=== PATIENT | female | born 1995 | race American Indian/Alaskan Native ===

== ENCOUNTER 2017-02-27 21:08 | Emergency (ER) | payer SELFPAY ==
[2017-02-27 21:17] VITALS: BP 134/83
[2017-02-28 00:01] LABS: Bilirubin,Urine NEG (Negative); Blood,Urine NEG (Negative); Color,Urine Yellow (Yellow); Mucus,Urine 1+ /HPF; Nitrite,Urine NEG (Negative); Protein,Urine <15 mg/dL mg/dL (Negative); RBC,Urine < 1.0 /HPF (0.0-6.0); WBC,Urine < 1.0 /HPF (0.0-6.0)
== END 2017-02-28 08:35 | disposition left against medical advice (07) ==
LOC: ED 21:08
DX: R10.9 Unspecified abdominal pain (principal); Z53.21 Procedure and treatment not carried out due to patient leaving prior to being seen by health care provider
CPT/HCPCS: 81001

== ENCOUNTER 2017-05-15 19:45 | Emergency (ER) | payer SELFPAY ==
[2017-05-15 20:48] VITALS: BP 129/82
[2017-05-15 21:13] LABS: Basophils % (Auto) 0.6 % (0.0-1.8); Eosinophils % (Auto) 0.3 % (0.0-4.3); Hematocrit 37.3 % (30.3-42.9); Hemoglobin 11.8 gm/dl (10.1-14.3); Lymphocytes # (Auto) 0.9 K/mm3 (1.2-5.4); Lymphocytes % (Auto) 15.3 % (13.4-35.0); Mean Corpuscular HGB Conc 32 % (30-34); Mean Corpuscular Volume 81 fl (79-97); Monocytes # (Auto) 0.4 K/mm3 (0.0-0.8); Monocytes % (Auto) 6.6 % (0.0-7.3); Platelet Count 351 K/mm3 (140-440); Red Blood Count 4.62 M/mm3 (3.65-5.03); Red Cell Distribution Width 15.3 % (13.2-15.2)
[2017-05-15 21:16] LABS: Mean Corpuscular Hemoglobin 26 pg (28-32)
[2017-05-15 21:23] LABS: BUN/Creatinine Ratio 17; Blood Urea Nitrogen 12 mg/dL (7-17); Calcium 8.6 mg/dL (8.4-10.2); Hemolysis Index 19
[2017-05-16 01:51] LABS: Bilirubin,Urine NEG (Negative); Blood,Urine NEG (Negative); Color,Urine Yellow (Yellow); Mucus,Urine 3+ /HPF; Protein,Urine <15 mg/dL mg/dL (Negative); Urobilinogen,Urine < 2.0 mg/dL (<2.0)
--- NOTE | 2017-05-16 02:52 | Emergency Department Report ---
HPI - General Chief Complaint: Nausea/Vomiting/Diarrhea Time Seen by Provider: 05/16/17 02:41 - HPI HPI: Patient is a 21-year-old female with no prior medical history who presents not feeling well she was at work Sunday she had to leave work. 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 ED Past Medical Hx - Past Medical History Previous Medical History?: Yes Additional medical history: h/o irreg vag bldg 2014, blood transfusion 2014 - Surgical History Past Surgical History?: No - Social History Smoking Status: Never Smoker Substance Use Type: None - Medications Home Medications: Home Medications Medication Instructions Recorded Confirmed Last Taken Type Ciprofloxacin HCl [Ciprofloxacin 500 mg PO Q12HR #10 tab 05/16/17 Unknown Rx TAB] ED Review of Systems ROS: Stated complaint: NOT FEELING WELL,THROWING UP Other details as noted in HPI Constitutional: denies: chills, fever Eyes: denies: eye pain, eye discharge, vision change ENT: denies: ear pain, throat pain Respiratory: denies: cough, shortness of breath, wheezing Cardiovascular: denies: chest pain, palpitations Endocrine: no symptoms reported Gastrointestinal: denies: abdominal pain, nausea, diarrhea Genitourinary: denies: urgency, dysuria, discharge Musculoskeletal: denies: back pain, joint swelling, arthralgia Skin: denies: rash, lesions Neurological: denies: headache, weakness, paresthesias Psychiatric: denies: anxiety, depression Hematological/Lymphatic: denies: easy bleeding, easy bruising Physical Exam - Physical Exam Vital Signs: Vital Signs 05/15/17 20:00 Temperature 99 F Pulse Rate 113 H Respiratory 18 Rate Blood Pressure 129/82 O2 Sat by Pulse 99 Oximetry Physical Exam: GENERAL: Alert and oriented x3, no apparent distress, Normal Gait, atraumatic. HEAD: Head is normocephalic and a-traumatic. LUNGS: Symetrical with respiration, No wheezing, no rales or crackles, CTAB. HEART: S1, S2 present, regular rate and rhythm without murmur, no rubs, no gallops. Non tender to palpation ABDOMEN: No organomegaly was noted,Positive bowel sounds, soft, and non- distended. . Nontender to palpation on all Quadrants, NO CVA tenderness. BACK: Full range of motion, no spinal tenderness, nontender to palpation. NEUROLOGIC: The patient is cooperative with no focal neurologic deficits. SKIN: Warm and dry, No lesions, No ulceration or induration present. ED Course Vital Signs 05/15/17 20:00 Temperature 99 F Pulse Rate 113 H Respiratory 18 Rate Blood Pressure 129/82 O2 Sat by Pulse 99 Oximetry ED Medical Decision Making - Lab Data Result diagrams: 05/15/17 20:58 05/15/17 20:58 Temp Pulse Resp BP Pulse Ox 99 F 113 H 18 129/82 99 05/15/17 20:00 05/15/17 20:00 05/15/17 20:00 05/15/17 20:00 05/15/17 20:00 Laboratory Last Values WBC 5.6 K/mm3 (4.5-11.0) 05/15/17 20:58 RBC 4.62 M/mm3 (3.65-5.03) 05/15/17 20:58 Hgb 11.8 gm/dl (10.1-14.3) 05/15/17 20:58 Hct 37.3 % (30.3-42.9) 05/15/17 20:58 MCV 81 fl (79-97) 05/15/17 20:58 MCH 26 pg (28-32) L 05/15/17 20:58 MCHC 32 % (30-34) 05/15/17 20:58 RDW 15.3 % (13.2-15.2) H 05/15/17 20:58 Plt Count 351 K/mm3 (140-440) 05/15/17 20:58 Lymph % (Auto) 15.3 % (13.4-35.0) 05/15/17 20:58 [place] % (Auto) 6.6 % (0.0-7.3) 05/15/17 20:58 Eos % (Auto) 0.3 % (0.0-4.3) 05/15/17 20:58 Baso % (Auto) 0.6 % (0.0-1.8) 05/15/17 20:58 Lymph # 0.9 K/mm3 (1.2-5.4) L 05/15/17 20:58 [place] # 0.4 K/mm3 (0.0-0.8) 05/15/17 20:58 Eos # 0.0 K/mm3 (0.0-0.4) 05/15/17 20:58 Baso # 0.0 K/mm3 (0.0-0.1) 05/15/17 20:58 Seg Neutrophils % 77.2 % (40.0-70.0) H 05/15/17 20:58 Seg Neutrophils # 4.3 K/mm3 (1.8-7.7) 05/15/17 20:58 Sodium 134 mmol/L (137-145) L 05/15/17 20:58 Potassium 3.6 mmol/L (3.6-5.0) 05/15/17 20:58 Chloride 100.5 mmol/L (98-107) 05/15/17 20:58 Carbon Dioxide 18 mmol/L (22-30) L 05/15/17 20:58 Anion Gap 19 mmol/L 05/15/17 20:58 BUN 12 mg/dL (7-17) 05/15/17 20:58 Creatinine 0.7 mg/dL (0.7-1.2) 05/15/17 20:58 Estimated GFR > 60 ml/min 05/15/17 20:58 BUN/Creatinine Ratio 17 % 05/15/17 20:58 Glucose 86 mg/dL (65-100) 05/15/17 20:58 Calcium 8.6 mg/dL (8.4-10.2) 05/15/17 20:58 HCG, Qual Negative (Negative) 05/15/17 20:58 Urine Color Yellow (Yellow) 05/15/17 Unknown Urine Turbidity Clear (Clear) 05/15/17 Unknown Urine pH 5.0 (5.0-7.0) 05/15/17 Unknown Ur Specific [place] 1.032 (1.003-1.030) H 05/15/17 Unknown Urine Protein <15 mg/dl mg/dL (Negative) 05/15/17 Unknown Urine Glucose (UA) Neg mg/dL (Negative) 05/15/17 Unknown Urine Ketones 20 mg/dL (Negative) 05/15/17 Unknown Urine Blood Neg (Negative) 05/15/17 Unknown Urine Nitrite Neg (Negative) 05/15/17 Unknown Urine Bilirubin Neg (Negative) 05/15/17 Unknown Urine Urobilinogen < 2.0 mg/dL (<2.0) 05/15/17 Unknown Ur Leukocyte Esterase Sm (Negative) 05/15/17 Unknown Urine WBC (Auto) 3.0 /HPF (0.0-6.0) 05/15/17 Unknown Urine RBC (Auto) 1.0 /HPF (0.0-6.0) 05/15/17 Unknown U Epithel Cells (Auto) 11.0 /HPF (0-13.0) 05/15/17 Unknown Urine Mucus 3+ /HPF 05/15/17 Unknown - Medical Decision Making 21-year-old female presents with mild cystitis CBC, BMP, urinalysis, test obtained Sodium and chloride mildly reproducible within normal limits Discussed all findings with the patient discussed the patient some antibiotics. I discussed the patient's wishes she is drinking enough fluids. Discussed the patient follow-up with the primary care physician. Vital signs are normal patient is in no acute distress or respiratory distress Critical care attestation.: If time is entered above; I have spent that time in minutes in the direct care of this critically ill patient, excluding procedure time. ED Disposition Clinical Impression: Cystitis Disposition: - TO HOME OR SELFCARE Is pt being admited?: No Does the pt Need Aspirin: No Condition: Stable Instructions: Urinary Tract Infection in Women (ED), Dehydration (ED) Additional Instructions: Make sure to follow up with the primary care physician as discussed. Take all your medications as you've been prescribed. Make sure to drink plenty of fluids If you have any worsening symptoms or develop new symptoms please return to ED immediately. Prescriptions: Ciprofloxacin HCl [Ciprofloxacin TAB] 500 mg PO Q12HR #10 tab Referrals: FRITZ ANDREA MD [Primary Care Provider] - 3-5 Days Forms: Work/School Release Form(ED) Time of Disposition: 02:52
== END 2017-05-16 03:05 | disposition home or self-care (01) ==
LOC: ED 19:45
DX: N30.90 Cystitis, unspecified without hematuria (principal)
CPT/HCPCS: 36415; 80048; 81001; 84703; 85025; 87086; 93005; 93010; 99283

== ENCOUNTER 2018-07-05 23:15 | Emergency (ER) | payer OTHER ==
[2018-07-05 23:44] LABS: Basophils % (Auto) 0.8 % (0.0-1.8); Eosinophils # (Auto) 0.1 K/mm3 (0.0-0.4); Eosinophils % (Auto) 2.2 % (0.0-4.3); Hematocrit 30.8 % (30.3-42.9); Hemoglobin 10.6 gm/dl (10.1-14.3); Lymphocytes # (Auto) 2.3 K/mm3 (1.2-5.4); Lymphocytes % (Auto) 39.5 % (13.4-35.0); Mean Corpuscular HGB Conc 35 % (30-34); Mean Corpuscular Volume 78 fl (79-97); Monocytes # (Auto) 0.4 K/mm3 (0.0-0.8); Monocytes % (Auto) 7.2 % (0.0-7.3); Platelet Count 396 K/mm3 (140-440); Red Blood Count 3.94 M/mm3 (3.65-5.03); Red Cell Distribution Width 15.9 % (13.2-15.2)
--- NOTE | 2018-07-06 00:23 | Emergency Department Report ---
ED Female HPI - General Chief complaint: Abdominal Pain Stated complaint: BLEEDING (CYCLE) X 1MONTH AND THROWING UP Time Seen by Provider: 07/06/18 00:11 Source: patient Mode of arrival: Ambulatory Limitations: No Limitations - History of Present Illness Initial comments: Patient is a 22-year-old female that presents emergency room for vaginal bleedi ng 1 month. Patient states now she is having lower abdominal pain. Patient states the pain is a worsening. Patient states the pain is a 6 out of 10. Patient states she has very heavy periods. Patient states she has been bleeding for at least one month. Patient states she has not seen her DIRECTOR FUNERAL. Patient states she is taking Advil for her pain. Patient states the pain is better with Advil and rest. Patient states the pain is worse with palpation and movement. MD Complaint: vaginal bleeding -: Sudden Location: suprapubic Radiation: non-radiating Severity: moderate Severity scale (0 -10): 6 Quality: cramping Consistency: intermittent Improves with: other Worsens with: movement, other Are you Now?: No Associated Symptoms: vaginal bleeding, abdominal pain, nausea/vomiting. denies: vaginal discharge, fever/chills, headaches, loss of appetite, dysuria, hematuria, rash, seizure, shortness of breath, syncope, weakness - Related Data Previous Rx's Medication Instructions Recorded Last Taken Type Ciprofloxacin HCl [Ciprofloxacin 500 mg PO Q12HR 7 Days #14 tab 07/06/18 Unknown Rx TAB] Allergies Allergy/AdvReac Type Severity Reaction Status Date / Time No Known Allergies Allergy Verified 01/15/18 05:30 ED Review of Systems ROS: Stated complaint: BLEEDING (CYCLE) X 1MONTH AND THROWING UP Other details as noted in HPI Constitutional: denies: chills, fever Eyes: denies: eye pain, eye discharge, vision change ENT: denies: ear pain, throat pain Respiratory: denies: cough, shortness of breath, wheezing Cardiovascular: denies: chest pain, palpitations Endocrine: no symptoms reported Gastrointestinal: abdominal pain, nausea, vomiting. denies: diarrhea Genitourinary: abnormal menses. denies: urgency, dysuria, discharge Musculoskeletal: denies: back pain, joint swelling, arthralgia Skin: denies: rash, lesions Neurological: denies: headache, weakness, paresthesias Psychiatric: denies: anxiety, depression Hematological/Lymphatic: denies: easy bleeding, easy bruising ED Past Medical Hx - Past Medical History Previous Medical History?: Yes Additional medical history: h/o irreg vag bldg 2014, blood transfusion 2014 - Surgical History Past Surgical History?: No - Family History Family history: no significant - Social History Smoking Status: Former Smoker Substance Use Type: None - Medications Home Medications: Home Medications Medication Instructions Recorded Confirmed Last Taken Type Ciprofloxacin HCl [Ciprofloxacin 500 mg PO Q12HR 7 Days #14 tab 07/06/18 Unknown Rx TAB] ED Physical Exam - General Limitations: No Limitations General appearance: alert, in no apparent distress - Head Head exam: Present: atraumatic, normocephalic - Eye Eye exam: Present: normal appearance - ENT ENT exam: Present: mucous membranes moist - Neck Neck exam: Present: normal inspection - Respiratory Respiratory exam: Present: normal lung sounds bilaterally. Absent: respiratory distress, wheezes, rales - Cardiovascular Cardiovascular Exam: Present: regular rate, normal rhythm. Absent: systolic murmur, diastolic murmur, rubs, gallop - GI/Abdominal GI/Abdominal exam: Present: soft, tenderness (suprapubic tenderness), normal bowel sounds - Extremities Exam Extremities exam: Present: normal inspection - Back Exam Back exam: Present: normal inspection - Neurological Exam Neurological exam: Present: alert, oriented X3 - Psychiatric Psychiatric exam: Present: normal affect, normal mood - Skin Skin exam: Present: warm, dry, intact, normal color. Absent: rash ED Course Vital Signs 07/05/18 07/06/18 23:23 00:35 Temperature 97.9 F Pulse Rate 87 74 Respiratory 18 16 Rate Blood Pressure 123/68 Blood Pressure 126/84 [Left] O2 Sat by Pulse 99 100 Oximetry - Reevaluation(s) Reevaluation #1: She resting comfortably. Patient had AN ULTRASOUND and RESULTS ARE PENDING. 07/06/18 01:26 Reevaluation #2: Discussed all results with patient. Patient stable for discharge. Patient was discharged home.. Patient agrees to plan of care. She given discharge instructions. Patient was understanding of discharge instructions. 07/06/18 02:09 ED Medical Decision Making - Lab Data Result diagrams: 07/05/18 23:25 - Radiology Data Radiology results: report reviewed PROCEDURE: US TRANSVAGINAL TECHNIQUE: Real-time transvaginal sonography in multiple planes of the pelvis was performed with image documentation. HISTORY: vaginal bleed. lower abd pain COMPARISONS: None . FINDINGS: UTERUS Size: 6.6 x 3.4 cm. Endometrial thickness: 12 mm. Orientation: anteverted. Cervix: Normal. Fibroids/masses: None. RIGHT Ovary: 2.2 x 1.7 x 2 cm. Appearance: Normal. LEFT Ovary: 2.9 x 1.7 x 1.7 cm. Appearance: Normal. Pelvic fluid: Minimal fluid noted. Other: None. IMPRESSION: The uterus and both ovaries have a normal appearance. Minimal fluid in the lower pelvis is noted.. - Medical Decision Making Patient is a 22-year-old female presents emergency room with complaints of bl eeding from her vagina for one month. Patient states she came in because of her abdominal cramps. Patient's labs unremarkable. Patient is not anemic. Patient found to have a UTI. Patient will be treated with antibiotics. Patient ultrasound negative. Patient sent to see a DIRECTOR FUNERAL. - Differential Diagnosis vaginal bleeding. Abdominal cramps. Critical care attestation.: If time is entered above; I have spent that time in minutes in the direct care of this critically ill patient, excluding procedure time. ED Disposition Clinical Impression: Vaginal bleeding, Dysfunctional uterine bleeding UTI (urinary tract infection) Qualifiers: Urinary tract infection type: acute cystitis Hematuria presence: with hematuria Qualified Code(s): N30.01 - Acute cystitis with hematuria Abdominal pain Qualifiers: Abdominal location: lower abdomen, unspecified Qualified Code(s): R10.30 - Lower abdominal pain, unspecified Disposition: TO HOME OR SELFCARE Is pt being admited?: No Does the pt Need Aspirin: No Condition: Stable Instructions: Abdominal Pain (ED), Menstruation (ED), Dysfunctional Uterine Bleeding (ED), Urinary Tract Infection in Women (ED) Additional Instructions: Patient to follow-up with primary care in 2-3 days. He should follow-up with DIRECTOR FUNERAL in 2-3 days. Should she start taking a vitamin daily. Patient to take Tylenol or ibuprofen when necessary for pain. Patient to return to ER if condition worsens. Patient to take meds as directed. Patient to increase water. Patient to rest. Prescriptions: Ciprofloxacin HCl [Ciprofloxacin TAB] 500 mg PO Q12HR 7 Days #14 tab Referrals: PRIMARY CARE, [Primary Care Provider] - 2-3 Days LAURA SERVIN MD [Staff Physician] - 2-3 Days Time of Disposition: 02:13
[2018-07-06 00:40] LABS: Bilirubin,Urine NEG (Negative); Blood,Urine LG (Negative); Color,Urine Yellow (Yellow); Mucus,Urine 1+ /HPF; Protein,Urine <15 mg/dL mg/dL (Negative)
[2018-07-06 00:51] LABS: RBC,Urine > 182.0 /HPF (0.0-6.0)
--- NOTE | 2018-07-06 01:59 | Ultrasound Report ---
PROCEDURE: US TRANSVAGINAL TECHNIQUE: Real-time transvaginal sonography in multiple planes of the pelvis was performed with uma ge documentation. HISTORY: vaginal bleed. lower abd pain COMPARISONS: None . FINDINGS: UTERUS Size: 6.6 x 3.4 cm. Endometrial thickness: 12 mm. Orientation: anteverted. Cervix: Normal. Fibroids/masses: None. RIGHT Ovary: 2.2 x 1.7 x 2 cm. Appearance: Normal. LEFT Ovary: 2.9 x 1.7 x 1.7 cm. Appearance: Normal. Pelvic fluid: Minimal fluid noted. Other: None. IMPRESSION: The uterus and both ovaries have a normal appearance. Minimal fluid in the lower pelvis is noted.. This document is electronically signed by Genna Diaz DO., Jul 06 2018 01:56:36 AM ET
[2018-07-06 02:40] VITALS: BP 108/70
== END 2018-07-06 02:40 | disposition home or self-care (01) ==
LOC: ED 23:15
DX: N30.01 Acute cystitis with hematuria (principal); N93.8 Other specified abnormal uterine and vaginal bleeding; Z87.891 Personal history of nicotine dependence
CPT/HCPCS: 36415; 76830; 81001; 84702; 84703; 85025; 86900; 86901

== ENCOUNTER 2019-04-28 08:23 | Emergency (ER) | payer SELFPAY ==
[2019-04-28] MEDS ORDERED: ONDANSETRON 4 MG/2 ML INJ IV ONE (09:46)
[2019-04-28] MEDS ORDERED: SODIUM CHLORIDE 0.9% 1000 ML 1,000 ML IV ONE (09:46)
--- NOTE | 2019-04-28 09:46 | Emergency Department Report ---
Vomiting/Diarrhea - HPI Chief Complaint: Nausea/Vomiting/Diarrhea Stated Complaint: VOMITTING,CHEST PAIN,WEAKNESS Time Seen by Provider: 04/28/19 08:42 Duration: Today Severity: severe Nausea/Vomiting Severity: Severe Diarrhea Severity: None Symptoms: No Watery Diarrhea, No Bloody diarrhea, No Fever, No Able to Tolerate Fluids, No Recent Unusual Foods, No Recent Untreated Water, No Recent use of Antibiotics, No Family w/ Similar Symptoms, No Contacts w/ Similar Symptoms, No Rash, No Hematuria, No Recent URI Symptoms Other History: This is a 23-year-old -[place] female who presents to the emergency room with vomiting and chest pain. Patient states symptoms started after eating breakfast at work this morning. Her last menstrual period was April 07, 2019, 0. Patient states chest pain is nonradiating and only during vomiting episodes. States she is unable to keep anything down. Denies fever, chills, weakness, headache, recent travel, or unusual foods. ED Review of Systems ROS: Stated complaint: VOMITTING,CHEST PAIN,WEAKNESS Other details as noted in HPI Constitutional: denies: chills, fever ENT: denies: ear pain, throat pain Respiratory: denies: cough, shortness of breath, wheezing Cardiovascular: chest pain. denies: palpitations Gastrointestinal: nausea, vomiting. denies: abdominal pain, diarrhea Musculoskeletal: denies: back pain, joint swelling, arthralgia Skin: denies: rash, lesions Neurological: denies: headache, weakness, paresthesias Psychiatric: denies: anxiety, depression ED Past Medical Hx - Past Medical History Previous Medical History?: No Additional medical history: h/o irreg vag bldg 2014, blood transfusion 2014 - Surgical History Past Surgical History?: No - Social History Smoking Status: Never Smoker Substance Use Type: None - Medications Home Medications: Home Medications Medication Instructions Recorded Confirmed Last Taken Type Ciprofloxacin HCl [Ciprofloxacin 500 mg PO Q12HR 7 Days #14 tab 07/06/18 Unknown Rx TAB] Ondansetron [Zofran Odt] 4 mg PO Q8HR PRN #20 tab.rapdis 04/28/19 Unknown Rx Vomiting Diarrhea Exam - Exam General: Vital signs noted. No distress. Alert and acting appropriately. HEENT: Yes Pharyngeal Erythema (Erythematous posterior pharynx, uvula midline), Yes Moist Mucous Membranes, No Pharyngeal Exudates, No Rhinorrhea, No Conjuctival Injection, No Frontal Tenderness, No Maxillary Tenderness Neck: No Adenopathy, No Rigidity Lungs: Yes Clear Lung Sounds, Yes Good Air Exchange, No Wheezes, No Stridor, No Cough, No Nasal Flaring, No Retractions, No Use of Accessory Muscles Heart exam: Regular: Yes, Murmur: No, Tachycardia: No Abdomen: Tenderness: No, Peritoneal Signs: No, Distention: No, Hyperactive Bowel sounds: No Skin exam: Rash: No, Edema: No, Normal turgor: Yes Neurologic: Alert and oriented, no deficits. Musculoskeletal: Unremarkable. ED Course Vital Signs 04/28/19 08:30 Temperature 97.9 F Pulse Rate 85 Respiratory 18 Rate Blood Pressure 132/74 O2 Sat by Pulse 100 Oximetry ED Medical Decision Making - Lab Data Result diagrams: 04/28/19 09:59 04/28/19 09:59 Lab Results 04/28/19 04/28/19 04/28/19 Range/Units 09:54 09:59 09:59 WBC 5.6 (4.5-11.0) K/mm3 RBC 4.48 (3.65-5.03) M/mm3 Hgb 9.6 L (10.1-14.3) gm/dl Hct 31.1 (30.3-42.9) % MCV 69 L (79-97) fl MCH 21 L (28-32) pg MCHC 31 (30-34) % RDW 18.3 H (13.2-15.2) % Plt Count 385 (140-440) K/mm3 Lymph % (Auto) 35.1 H (13.4-35.0) % [place] % (Auto) 7.1 (0.0-7.3) % Eos % (Auto) 1.0 (0.0-4.3) % Baso % (Auto) 0.9 (0.0-1.8) % Lymph # 2.0 (1.2-5.4) K/mm3 [place] # 0.4 (0.0-0.8) K/mm3 Eos # 0.1 (0.0-0.4) K/mm3 Baso # 0.0 (0.0-0.1) K/mm3 Seg Neutrophils % 55.9 (40.0-70.0) % Seg Neutrophils # 3.1 (1.8-7.7) K/mm3 Sodium 137 (137-145) mmol/L Potassium 4.5 (3.6-5.0) mmol/L Chloride 100.9 (98-107) mmol/L Carbon Dioxide 23 (22-30) mmol/L Anion Gap 18 mmol/L BUN 11 (7-17) mg/dL Creatinine 0.8 (0.7-1.2) mg/dL Estimated GFR > 60 ml/min BUN/Creatinine Ratio 14 % Glucose 88 (65-100) mg/dL Calcium 9.9 (8.4-10.2) mg/dL Total Bilirubin 0.20 (0.1-1.2) mg/dL AST 20 (5-40) units/L ALT 10 (7-56) units/L Alkaline Phosphatase 70 (35-129) units/L Total Protein 8.3 H (6.3-8.2) g/dL Albumin 4.6 (3.9-5) g/dL Albumin/Globulin Ratio 1.2 % Urine Color Straw (Yellow) Urine Turbidity Clear (Clear) Urine pH 7.0 (5.0-7.0) Ur Specific [place] 1.011 (1.003-1.030) Urine Protein <15 mg/dl (Negative) mg/dL Urine Glucose (UA) Neg (Negative) mg/dL Urine Ketones Neg (Negative) mg/dL Urine Blood Mod (Negative) Urine Nitrite Neg (Negative) Urine Bilirubin Neg (Negative) Urine Urobilinogen < 2.0 (<2.0) mg/dL Ur Leukocyte Esterase Lg (Negative) Urine WBC (Auto) 1.0 (0.0-6.0) /HPF Urine RBC (Auto) 4.0 (0.0-6.0) /HPF U Epithel Cells (Auto) 2.0 (0-13.0) /HPF Urine Bacteria (Auto) 1+ (Negative) /HPF Urine Mucus Few /HPF Urine HCG, Qual Negative (Negative) - Medical Decision Making This is a 23 y.o. female that presents with nausea and vomiting for 1 day. No significant past medical history. Patient is stable and was examined by me. Vitals stable. Obtained CMP, CBC, & UA. Mild anemia. All other labs are unremarkable. Abdomen nontender on exam. There is low suspicion of acute abdomen, AAA, GERD, and small bowel obstruction. Imaging deferred at this time. Given antiemetics and normal saline IV once in ER. Plan to start Zofran for gastroenteritis. Discussed plan with patient and agreed to plan. No further questions noted by the patient. Discharged home in stable condition. Patient given strict return instructions. Follow up with PCP in 2-3 days. Critical care attestation.: If time is entered above; I have spent that time in minutes in the direct care of this critically ill patient, excluding procedure time. ED Disposition Clinical Impression: Gastroenteritis, Nausea and vomiting in adult Disposition: DC-01 TO HOME OR SELFCARE Is pt being admited?: No Condition: Stable Instructions: Gastroenteritis (ED), Acute Nausea and Vomiting (ED) Additional Instructions: Frequent hand washing is important to reduce spread. Prompt disinfection of contaminated surfaces with household chlorine bleach- based mast maker and washing of soiled clothing and bedding should be advised. If food or water is thought to be contaminated, it should be avoided. Increase fluid intake. Drinks high in sugars such as carbonated soft drinks, fruit juice, and highly sugared liquids should be avoided. Prescriptions: Ondansetron [Zofran Odt] 4 mg PO Q8HR PRN #20 tab.rapdis PRN Reason: Nausea And Vomiting Referrals: [facility] [Outside] - 3-5 Days [facility] [Outside] - 3-5 Days [facility] [Outside] - 3-5 Days Forms: Work/School Release Form(ED) Time of Disposition: 12:02
[2019-04-28 10:47] LABS: Basophils % (Auto) 0.9 % (0.0-1.8); Eosinophils # (Auto) 0.1 K/mm3 (0.0-0.4); Hematocrit 31.1 % (30.3-42.9); Hemoglobin 9.6 gm/dl (10.1-14.3); Lymphocytes % (Auto) 35.1 % (13.4-35.0); Mean Corpuscular HGB Conc 31 % (30-34); Monocytes # (Auto) 0.4 K/mm3 (0.0-0.8); Monocytes % (Auto) 7.1 % (0.0-7.3); Platelet Count 385 K/mm3 (140-440); Red Blood Count 4.48 M/mm3 (3.65-5.03); Red Cell Distribution Width 18.3 % (13.2-15.2)
[2019-04-28 10:50] LABS: Mean Corpuscular Volume 69 fl (79-97)
[2019-04-28 11:11] LABS: Bacteria,Urine 1+ /HPF (Negative); Bilirubin,Urine NEG (Negative); Blood,Urine MOD (Negative); Color,Urine Straw (Yellow); Mucus,Urine FEW /HPF; Protein,Urine <15 mg/dL mg/dL (Negative); Urobilinogen,Urine < 2.0 mg/dL (<2.0)
[2019-04-28 11:12] LABS: HCG Qualitative,Urine Negative (Negative)
[2019-04-28 11:40] LABS: Alanine Aminotransferase 10 units/L (7-56); Albumin 4.6 g/dL (3.9-5); BUN/Creatinine Ratio 14; Blood Urea Nitrogen 11 mg/dL (7-17); Calcium 9.9 mg/dL (8.4-10.2); Hemolysis Index 4
[2019-04-28 12:13] VITALS: BP 126/71
== END 2019-04-28 12:12 | disposition home or self-care (01) ==
LOC: ED 08:23
DX: K52.9 Noninfective gastroenteritis and colitis, unspecified (principal); R11.2 Nausea with vomiting, unspecified; Z79.2 Long term (current) use of antibiotics; Z79.899 Other long term (current) drug therapy
CPT/HCPCS: 36415; 80053; 81001; 81025; 85025; 96361; 96374; 99283; J2405; J7030